=== PATIENT | female | born 1945 | race Caucasian/White ===

== ENCOUNTER → 2016-12-14 | Outpatient (CLI) | payer BC ==
[~2016-12-14] MED LIST: ACET-1256 PO; CLB200 PO; DIPH-437 PO; ESCI1TAB10 PO; GABA-774 PO; LORA10TA44 PO; PANT40TA PO; RQP/5 PO; SIMV10TA2 PO; SYN137 PO
[2016-12-14 12:54] LABS: BASO % 0.3 %; BASO ABS # 0.02 K/uL (0-0.2); COMPLETE YES; EOS % 3.5 %; HEMATOCRIT 41.4 % (37-47); IG% 0.8 %; MEAN CELL VOLUME 94.3 fL (80-100); MEAN CORPUSCULAR HEMOGLOBIN 30.8 pg (25-34); MEAN CORPUSCULAR HGB CONC 32.6 g/dl (32-36); MEAN PLATELET VOLUME 10.2 fL (7.4-10.4); MONO % 11.8 %; NEUT % 40.6 %; PLATELET COUNT 271 K/uL (130-400); RED BLOOD COUNT 4.39 M/uL (4.2-5.4); WHITE BLOOD COUNT 6.04 K/uL (4.8-10.8)
[2016-12-14 13:31] LABS: ALT/SGPT 43 U/L (12-78); AST/SGOT 40 U/L (15-37); BLOOD UREA NITROGEN 16 mg/dl (7-18); BUN/CREATININE RATIO 17.7 (10-20); CALCIUM 8.7 mg/dl (8.5-10.1); CARBON DIOXIDE 24 mmol/L (21-32); CHLORIDE 108 mmol/L (98-107); CHOLESTEROL 228 mg/dl (0-200); CREATININE 0.89 mg/dl (0.60-1.20); GLUCOSE 96 mg/dl (70-99); POTASSIUM 4.1 mmol/L (3.5-5.1); SODIUM 141 mmol/L (136-145)
[2016-12-14 13:42] LABS: ALB/GLOB RATIO 1.2 (0.9-2); ALKALINE PHOSPHATASE 75 U/L (45-117); CHOLESTEROL/HDL RATIO 4.2; HDL CHOLESTEROL 54 mg/dl; LDL CHOLESTEROL CALCULATED 143 mg/dl; TRIGLYCERIDES 155 mg/dl (0-150); VERY LOW DENSITY LIPOPROT CALC 31 mg/dl
--- NOTE | 2016-12-22 05:45 | CODING QUERY MEDICAL NECESSITY ---
CQSUPPORTING DIAGNOSIS NEEDED A supporting diagnosis is required for the test/procedure performed on this patient in order for us to be reimbursed by the patient's insurance. Please provide a supporting diagnosis for the following test/procedure listed below next to the test name along with your signature. *If there is no additional diagnosis for this patient that would support the following test/procedure please document that below next to the test/procedure. Test(s)/Procedure(s) that require a supporting diagnosis: DOS 12/14/16 BLOOD COUNTS Provider Signature: Date: Thank you Jaymie Donald Directr Information Management Once completed, please kindly fax back to [phone] For questions please call [phone]
== END | disposition home or self-care (01) ==
LOC: C.LABPVFM 09:05
PROVIDERS: ATTEND Neuromusculoskeletal Medicine & OMM
DX: Z00.00 Encounter for general adult medical examination without abnormal findings (principal); R31.29 Other microscopic hematuria

== ENCOUNTER → 2017-07-23 | Outpatient (CLI) | payer BC ==
[~2017-07-23] MED LIST changes: -ACET-1256 PO; -DIPH-437 PO; -GABA-774 PO; -PANT40TA PO; -SIMV10TA2 PO
--- NOTE | 2017-07-23 14:24 | DIAGNOSTIC IMAGING REPORT ---
MRI OF THE LUMBAR SPINE WITHOUT IV CONTRAST CLINICAL HISTORY: Bilateral lower extremity radiculopathy. Chronic low back pain. COMPARISON STUDY: MRI of the lumbar spine dated 06/27/2014. TECHNIQUE: MRI of the lumbar spine is performed utilizing various T1 and T2-weighted images in the axial, sagittal, and coronal planes. IV contrast was not administered for this examination. FINDINGS: Lumbar spine: Vertebral body height is maintained throughout the lumbar spine. Minimal retrolisthesis is seen at L2-L3. Alignment is otherwise preserved. There is straightening of the lumbar lordosis. Lumbar dextrocurvature is centered at L3. Anterior and lateral marginal osteophytes are seen throughout. Marrow signal intensity is slightly heterogeneous. Chronic degenerative endplate changes seen at all levels. Mild endplate edema is seen at L3-L4. No destructive bony lesion is identified. A hemangioma is incidentally noted in the body of L1. The transverse and spinous processes appear intact. No evidence of spondylolysis is seen. Intervertebral discs: Degenerative disc desiccation is seen throughout the lumbar spine. Moderate loss of height is seen from L2 to L3 through L4-L5. Spinal cord: The visualized spinal cord is normal in morphology and signal intensity. The conus medullaris terminates at the level of L1. The nerve roots of the cauda equina are normal in morphology. These are tethered at L3-L4 and L4-L5. L1-L2: There is a small posterior disc bulge with annular fissure. No significant acquired compromise of the central canal is identified. Facet arthropathy causes minimal left-sided neural foraminal stenosis. L2-L3: A posterior disc bulge is seen eccentric to the left with annular fissure. There is no significant acquired compromise of the central canal at this level. There is bilateral subarticular stenosis, with probable impingement on the exiting bilateral L2 and the transiting bilateral L3 nerve roots. Facet arthropathy causes mild left-sided neural foraminal stenosis. L3-L4: There is broad-based posterior disc bulge with annular fissure. In conjunction with hypertrophy of the ligamentum flavum, there is mild to moderate central canal stenosis at this level with a minimum AP diameter of 9 mm. There is severe bilateral subarticular stenosis, left greater right. This likely impinges on the exiting left L3 nerve root. This also abuts the transiting bilateral nerve roots and the exiting right L3 nerve root. Mild facet arthropathy is of no consequence. The neural foramina appear clear. L4-L5: There is posterior disc bulge with annular fissure. In conjunction with hypertrophy of the ligamentum flavum, there is moderate central canal stenosis at this level with a minimum AP diameter of 7 mm. There is bilateral subarticular stenosis with possible impingement of exiting bilateral L4 as was the transiting bilateral L5 nerve roots. Facet arthropathy causes mild bilateral neural foraminal stenosis. L5-S1: There is minimal posterior disc bulge with annular fissure. No significant acquired compromise of the central canal is identified. There is mild]right greater than left subarticular stenosis. This may abut the exiting right L5 nerve root. Facet arthropathy causes mild right neural foraminal stenosis. Facet joint effusions are identified. Sacrum: The visualized sacrum is normal in morphology and signal intensity. Mild fatty marrow changes observed. Soft tissues: There is fatty atrophy of the paraspinous and iliopsoas musculature. The partially imaged retroperitoneal structures are grossly unremarkable but incompletely assessed. Diverticular disease is noted in the partially imaged sigmoid colon. IMPRESSION: 1. Moderate lumbosacral spondylosis and scoliosis as detailed above with multilevel acquired compromise of the central canal. See discussion for detailed level by level analysis. These findings are similar to the 06/27/2014 examination. 2. No destructive bony lesion is seen. Dictated: 07/23/2017 2:00 PM Transcribed: 07/23/2017 2:24 PM Ana Electronically signed by: Valente Vallecillo M.D. 07/23/2017 2:47 PM Dictated Date/Time: 07/23/2017 2:00 PM
== END | disposition home or self-care (01) ==
LOC: C.MRI 13:06
PROVIDERS: ATTEND Orthopaedic Surgery Orthopaedic Surgery of the Spine
DX: M48.061 Spinal stenosis, lumbar region without neurogenic claudication (principal); M47.816 Spondylosis without myelopathy or radiculopathy, lumbar region; M41.50 Other secondary scoliosis, site unspecified

== ENCOUNTER → 2017-08-12 | Outpatient (CLI) | payer BC ==
--- NOTE | 2017-08-12 14:37 | DIAGNOSTIC IMAGING REPORT ---
RIBS UNILATERAL WITH PA CHEST HISTORY: 72 years-old Female ACUTE SINUSITIS/ RIB PAIN ON LT acute left-sided rib pain with acute atypical chest pain COMPARISON: Chest radiographs 09/14/2015 TECHNIQUE: PA view of the chest with left ribs FINDINGS: Cardiomediastinal and hilar silhouettes are within normal limits. Moderate hemidiaphragmatic elevation is unchanged. There is no pneumothorax, pleural effusion, focal airspace consolidation or overt pulmonary edema. Mild biapical pleural-parenchymal scarring. Minimal sigmoidal scoliosis of the thoracolumbar spine. There is an acute fracture of the anterolateral left ninth rib with 3 mm lateral displacement. No additional acute displaced rib fracture identified. Multilevel degenerative changes of the spine. IMPRESSION: 1. No acute process of the chest. 2. Acute mildly displaced fracture of the anterolateral left ninth rib. No pneumothorax. The above report was generated using voice recognition software. It may contain grammatical, syntax or spelling errors. Electronically signed by: Lalit Hansen M.D. 08/12/2017 2:36 PM Dictated Date/Time: 08/12/2017 2:33 PM
== END | disposition home or self-care (01) ==
LOC: C.RADPV 14:10
PROVIDERS: ATTEND Nurse Practitioner
DX: J01.90 Acute sinusitis, unspecified (principal); R07.81 Pleurodynia; S22.32XA Fracture of one rib, left side, initial encounter for closed fracture; X58.XXXA Exposure to other specified factors, initial encounter

== ENCOUNTER → 2017-08-27 | Outpatient (CLI) | payer BC ==
[2017-08-27 12:59] LABS: BLOOD UREA NITROGEN 19 mg/dl (7-18); CALCIUM 9.2 mg/dl (8.5-10.1); CARBON DIOXIDE 28 mmol/L (21-32); CHOLESTEROL 310 mg/dl (0-200); CREATININE 0.83 mg/dl (0.60-1.20); GLUCOSE 107 mg/dl (70-99); POTASSIUM 4.5 mmol/L (3.5-5.1); SODIUM 138 mmol/L (136-145)
== END | disposition home or self-care (01) ==
LOC: C.LABPVFM 08:00
PROVIDERS: ATTEND Nurse Practitioner
DX: E78.5 Hyperlipidemia, unspecified (principal); E03.9 Hypothyroidism, unspecified; G25.81 Restless legs syndrome; M48.061 Spinal stenosis, lumbar region without neurogenic claudication

== ENCOUNTER → 2018-02-04 | Outpatient (CLI) | payer BC ==
[2018-02-04 13:03] LABS: BLOOD UREA NITROGEN 15 mg/dl (7-18); CALCIUM 9.1 mg/dl (8.5-10.1); CARBON DIOXIDE 24 mmol/L (21-32); CHOLESTEROL 185 mg/dl (0-200); CREATININE 0.83 mg/dl (0.60-1.20); GLUCOSE 110 mg/dl (70-99); POTASSIUM 4.1 mmol/L (3.5-5.1); SODIUM 141 mmol/L (136-145)
== END | disposition home or self-care (01) ==
LOC: C.LABPVFM 09:10
PROVIDERS: ATTEND Nurse Practitioner
DX: G25.81 Restless legs syndrome (principal); E03.9 Hypothyroidism, unspecified; E78.5 Hyperlipidemia, unspecified

== ENCOUNTER 2019-12-29 08:36 | Observation (INO) ==
--- NOTE | 2019-12-12 19:40 | PAT Medication Instructions ---
Medication Instructions Date of Service December 12, 2019 Home Medications Medication Instructions Recorded cetirizine 10 mg tablet 10 mg PO DAILY PRN #90 tab 11/11/18 simvastatin 20 mg tablet See Rx Instructions .ROUTE 03/28/19 .COMPLEX #90 tablet diclofenac sodium 1 % topical gel 4 gm TOP QID PRN #100 gm 04/28/19 levothyroxine 150 mcg tablet See Rx Instructions .ROUTE 04/28/19 .COMPLEX #30 tablet lorazepam 0.5 mg tablet 0.5 mg PO BID PRN #20 tab 05/01/19 celecoxib 200 mg capsule 200 mg PO BID #180 cap 05/29/19 triamcinolone acetonide 0.1 % 1 applic TOP BID #80 gm 07/26/19 topical ointment ropinirole 1 mg tablet See Rx Instructions PO BID #180 tab 08/03/19 pantoprazole 40 mg tablet,delayed 40 mg PO HS #90 tab 10/23/19 release pregabalin 100 mg capsule 100 mg PO BID #60 cap 11/30/19 tramadol 50 mg tablet 50 mg PO BID PRN #60 tab 11/30/19 duloxetine 30 mg capsule,delayed 30 mg PO DAILY #90 cap 12/11/19 release duloxetine 60 mg capsule,delayed 60 mg PO DAILY #90 cap 12/11/19 release ascorbic acid (vitamin C) 500 mg tablet 250 mg PO QAM cetirizine 10 mg tablet 10 mg PO DAILY PRN cholecalciferol (vitamin D3) 25 mcg (1,000 unit) tablet 2,000 units PO QAM multivit with min-folic acid 200 mcg chewable tablet 200 mcg PO QAM cyanocobalamin (vitamin B-12) [Vitamin B-12] 2,000 mcg PO QAM simvastatin 20 mg tablet See Rx Instructions .ROUTE .COMPLEX diclofenac sodium 1 % topical gel 4 gm TOP QID PRN levothyroxine 150 mcg tablet See Rx Instructions .ROUTE .COMPLEX lorazepam 0.5 mg tablet 0.5 mg PO BID PRN celecoxib 200 mg capsule 200 mg PO BID triamcinolone acetonide 0.1 % topical ointment 1 applic TOP BID ropinirole 1 mg tablet See Rx Instructions PO BID pantoprazole 40 mg tablet,delayed release 40 mg PO HS pregabalin 100 mg capsule 100 mg PO BID tramadol 50 mg tablet 50 mg PO BID PRN Cbd 1 dose SUBLINGUAL BID Cbd Gummy Chew 1 tab PO QPM duloxetine 30 mg capsule,delayed release 30 mg PO DAILY duloxetine 60 mg capsule,delayed release 60 mg PO DAILY ASK your surgeon for instructions celecoxib 200 mg capsule 200 mg PO BID STOP taking 24 hours before surgery diclofenac sodium 1 % topical gel 4 gm TOP QID PRN triamcinolone acetonide 0.1 % topical ointment 1 applic TOP BID ropinirole 1 mg tablet See Rx Instructions PO BID DO NOT take the morning of surgery ascorbic acid (vitamin C) 500 mg tablet 250 mg PO QAM cetirizine 10 mg tablet 10 mg PO DAILY PRN cholecalciferol (vitamin D3) 25 mcg (1,000 unit) tablet 2,000 units PO QAM multivit with min-folic acid 200 mcg chewable tablet 200 mcg PO QAM cyanocobalamin (vitamin B-12) [Vitamin B-12] 2,000 mcg PO QAM Cbd 1 dose SUBLINGUAL BID Take morning of surgery With a small sip of water, OTHERWISE NOTHING TO EAT OR DRINK AFTER MIDNIGHT: simvastatin 20 mg tablet See Rx Instructions .ROUTE .COMPLEX levothyroxine 150 mcg tablet See Rx Instructions .ROUTE .COMPLEX lorazepam 0.5 mg tablet 0.5 mg PO BID PRN (if needed) pregabalin 100 mg capsule 100 mg PO BID tramadol 50 mg tablet 50 mg PO BID PRN (okay to take up to 4 hours prior to surgery if needed) duloxetine 30 mg capsule,delayed release 30 mg PO DAILY duloxetine 60 mg capsule,delayed release 60 mg PO DAILY Take evening before surgery cetirizine 10 mg tablet 10 mg PO DAILY PRN (if needed) simvastatin 20 mg tablet See Rx Instructions .ROUTE .COMPLEX lorazepam 0.5 mg tablet 0.5 mg PO BID PRN (if needed) pantoprazole 40 mg tablet,delayed release 40 mg PO HS pregabalin 100 mg capsule 100 mg PO BID tramadol 50 mg tablet 50 mg PO BID PRN (if needed) Cbd 1 dose SUBLINGUAL BID Cbd Gummy Chew 1 tab PO QPM Other Notes If you have any questions please call us at [phone] or [phone] or [phone] or [phone]
--- NOTE | 2019-12-14 09:50 | Anesthesiology Consultation ---
Date of Service December 14, 2019 Assessment & Plan (1) Encounter for pre-operative examination: Per PAT assessment on 12/13: Travel screen negative. No known COVID-19 positive contacts. No current COVID-19 related symptoms. Patient scheduled for preop pr otocol COVID-19 testing at [facility]. Awaiting results. Chart Review Chart Review: Acceptable Risk for Surgery (pending COVID testing) and Patient seen in Pre Admission Testing Teaching & Discussion Pre-Anesthesia Teaching/Discussion Notes: Instructed NPO after midnight before surgery,except medications with 15 cc of water. Medication instructions provided according to the PAT guidelines. History Surgery Operation Date: 12/29/19 12:30 Proposed Procedures p Left Total Knee Arthroplasty - Jose Angel Greer MD Height/Weight Height: 5 ft 2 in Weight: 83.8 kg Allergies Allergy/AdvReac Type Severity Reaction Status Date / Time aspirin Allergy Unknown facial Verified 12/06/19 10:23 swelling chlorpheniramine Allergy Unknown facial Verified 12/06/19 10:23 swelling Gluten AdvReac Intermediate diarhea Uncoded 12/06/19 10:23 Medications Home Medications Medication Instructions Recorded Confirmed Last Taken ascorbic acid (vitamin C) 500 mg 250 mg PO QAM tab 11/11/18 12/06/19 01/11/19 tablet cetirizine 10 mg tablet 10 mg PO DAILY PRN #90 tab 11/11/18 12/06/19 Unknown cholecalciferol (vitamin D3) 25 2,000 units PO QAM tab 11/11/18 12/06/19 01/11/19 mcg (1,000 unit) tablet multivit with min-folic acid 200 200 mcg PO QAM tab 11/11/18 12/06/19 01/11/19 mcg chewable tablet cyanocobalamin (vitamin B-12) 2,000 mcg PO QAM 01/12/19 12/06/19 01/11/19 [Vitamin B-12] simvastatin 20 mg tablet See Rx Instructions .ROUTE 03/28/19 12/06/19 Unknown .COMPLEX #90 tablet diclofenac sodium 1 % topical gel 4 gm TOP QID PRN #100 gm 04/28/19 12/06/19 Unknown levothyroxine 150 mcg tablet See Rx Instructions .ROUTE 04/28/19 12/06/19 Unknown .COMPLEX #30 tablet lorazepam 0.5 mg tablet 0.5 mg PO BID PRN #20 tab 05/01/19 12/06/19 Unknown celecoxib 200 mg capsule 200 mg PO BID #180 cap 05/29/19 12/06/19 Unknown triamcinolone acetonide 0.1 % 1 applic TOP BID #80 gm 07/26/19 12/06/19 Unknown topical ointment ropinirole 1 mg tablet See Rx Instructions PO BID #180 tab 08/03/19 12/06/19 Unknown pantoprazole 40 mg tablet,delayed 40 mg PO HS #90 tab 10/23/19 12/06/19 Unknown release pregabalin 100 mg capsule 100 mg PO BID #60 cap 11/30/19 12/06/19 Unknown tramadol 50 mg tablet 50 mg PO BID PRN #60 tab 11/30/19 12/06/19 Unknown Cbd 1 dose SUBLINGUAL BID 12/06/19 12/06/19 Unknown Cbd Gummy Chew 1 tab PO QPM 12/06/19 12/06/19 Unknown duloxetine 30 mg capsule,delayed 30 mg PO DAILY #90 cap 12/11/19 Unknown release duloxetine 60 mg capsule,delayed 60 mg PO DAILY #90 cap 12/11/19 Unknown release Past Medical History Medical History Chronic back pain lower back Fibromyalgia GERD (gastroesophageal reflux disease) controlled Hyperlipidemia Hypothyroidism Restless leg syndrome Scoliosis Exercise / Class Metabolic Activity III < 4 Walking/Shop/Light housework Past Family History Family History Sister Breast cancer Father Myocardial infarction Family history of diabetes mellitus Denies family history of Ovarian cancer Prostate cancer Colorectal cancer Past Surgical History Surgical History History of cataract surgery R/L History of colonoscopy History of esophagogastroduodenoscopy (EGD) History of knee surgery RIGHT History of oophorectomy History of total knee replacement RIGHT Hx of eye surgery REPAIR "HOLE EYE" Hx of hysterectomy Past Anesthesia History No Hx of Anesthesia Complications and No Family Hx of Anesthesia Complications History of PONV No Hx of PONV and No Hx of Motion Sickness Social History Smoking Status: Never smoker Do You Dip or Chew Tobacco: No Hx Alcohol Use: Yes Alcohol type: beer, wine and hard liquor alcohol intake frequency: a few times a week Hx Substance Use: Yes substance use type: other Substance Use Type Other:: CBD OIL 2 X DAILY-CBD OIL SL AM AND SL/CHEWY PO PM Review of Systems Patient denies chest pain, shortness of breath, fever, chills, cough, wheezing, palpitations. Physical Exam Vital Signs VITALS BP 125/77 P 67 TEMP 98.0 SP02 97%RA RESP 16 PHYSICAL Full neck and c-spine range of motion. Full TMJ range of motion. TMD 2.5 finger breaths Mallampati Score 3 Dentition: missing tooth ("failed implant") left upper molar, several caps vs. crowns including upper front teeth Lungs: clear throughout to auscultation Cardiac: regular rate and rhythm, no murmurs noted Spine: normal Carotid arteries: negative bruit Extremities: left shoulder bruise after mechanical fall 11/2019 Testing Laboratory Results 12/14/19 10:20 PT 10.8 Seconds (9.0-12.0) 12/14/19 10:20 INR 1.0 (0.9-1.1) 12/14/19 10:20 APTT 27.7 Seconds (21.0-31.0) 12/14/19 10:20 Blood Type O Positive 12/14/19 10:20 Antibody Screen NEGATIVE 12/14/19 10:20 11/27/19 WBC 6.5 H/H 13.9/40.2 PLT 253 Electrocardiogram Date: 12/14/19 NSR at 67bpm. LAFB. Chest X-Ray Date: 12/14/19 Findings: + NAD
--- NOTE | 2019-12-14 10:28 | Electrocardiogram Report ---
Test Reason : Blood Pressure : / mmHG Vent. Rate : 067 BPM Atrial Rate : 067 BPM P-R Int : 146 ms QRS Dur : 084 ms QT Int : 440 ms P-R-T Axes : 073 -58 045 degrees QTc Int : 464 ms Normal sinus rhythm Left anterior fascicular block Abnormal ECG When compared with ECG of 14-SEP-2015 02:31, No significant change was found Confirmed by Brannon Mccarthy ([id number]) on 12/14/2019 10:27:47 AM Referred By: Jose Angel Greer Confirmed By:Brannon Mccarthy
--- NOTE | 2019-12-14 10:56 | XRay Report ---
XR chest 2V PA/lateral CLINICAL HISTORY: PREOP preoperative evaluation COMPARISON STUDY: 08/12/2017 FINDINGS: The bones soft tissues and hemidiaphragms are normal. The cardiomediastinal silhouette is n ormal. The lungs are clear. The pulmonary vasculature is normal. IMPRESSION: Negative chest. ACT 112: Negative or not required by law. The above report was generated using voice recognition software. It may contain grammatical, syntax or spelling errors. Electronically signed by: Haim Ramirez M.D. 12/14/2019 10:55 AM
[2019-12-14 12:56] LABS: Partial Thromboplastin Time 27.7 Seconds (21.0-31.0); Prothrombin Time 10.8 Seconds (9.0-12.0)
[2019-12-14 13:00] LABS: BUN Creatinine Ratio 21.2 (10-20); Blood Urea Nitrogen 20 mg/dl (7-18); C Reactive Protein < 0.29 mg/dl (0-0.29); Calcium 9.1 mg/dl (8.5-10.1); Carbon Dioxide 27 mmol/L (21-32); Chloride 107 mmol/L (98-107); Creatinine Clr Calc Pharmacy 55.5 ml/min; Est GFR (African American) 72.1; Est GFR (Non-African American) 62.2; Glucose 101 mg/dl (70-99); Potassium 4.6 mmol/L (3.5-5.1); Sodium 138 mmol/L (136-145)
[~2019-12-29 08:36] MED LIST changes: +ACETAMINOPHEN 500 MG TAB PO SCH; +BUPIVACAINE LIPOSOME/PF 266 MG, BUPIVACAINE/EPINEPHRINE 50 ML, SODIUM CHLORIDE 0.9% 30 ... INFIL SCH; +CEFAZOLIN 2000MG 2,000 MG/15 ML SYR IV SCH; -CLB200 PO; -ESCI1TAB10 PO; +FAMOTIDINE 20 MG TAB PO SCH; +GABAPENTIN 300 MG CAP PO SCH; -LORA10TA44 PO; +LR 500ML BOLUS, THEN 15ML/HR IV SCH; +LR 60ML/HR IV SCH; +METOCLOPRAMIDE HCL 10 MG TABLET PO SCH; -RQP/5 PO; -SYN137 PO; +TRANEXAMIC ACID 1,000 MG **IV Intra-op IV SCH
--- NOTE | 2019-12-29 08:43 | History & Physical Bridge Note ---
Date of Service December 29, 2019 History & Physical Bridge Note I have examined the patient, reviewed the History & Physical and in the interval since the performance of the History & Physical I have noted the following changes of clinical significance: no changes noted
[2019-12-29] MEDS ORDERED: ROPIVACAINE 0.5% 5 MG/ML 30 ML VIAL ONE (08:50)
[2019-12-29] MEDS ORDERED: BUPIVACAINE 0.5 % 5 MG/1 ML PF 10ML VIAL ONE (08:50)
[2019-12-29] MEDS ORDERED: ATROPINE SULFATE 0.1 MG/ML 10ML SYR IV PRN (09:02)
[2019-12-29] MEDS ORDERED: ONDANSETRON INJ 2 MG/ML 2 ML VIAL IV PRN ×2 (09:02→13:56)
[2019-12-29] MEDS ORDERED: ePHEDrine sulfate 50 MG/ML AMP IV PRN (09:02)
[2019-12-29] MEDS ORDERED: fentaNYL citrate 100 MCG/2 ML VIAL IV PRN (09:02)
[2019-12-29] MEDS ORDERED: MIDAZOLAM HCL 1 MG/ML 2ML VIAL ONE (09:22)
[2019-12-29] MEDS ORDERED: LIDOCAINE HCL 2% 2 ML VIAL/AMP(20MG/ML) INFIL ONE (09:22)
[2019-12-29] MEDS ORDERED: PROPOFOL IV EMULSION 10 MG/ML 20 ML VIAL IV ONE (09:22)
[2019-12-29] MEDS ORDERED: GABAPENTIN 300 MG CAP ONE (10:13)
[2019-12-29] MEDS ORDERED: FAMOTIDINE 20 MG TAB ONE (10:13)
[2019-12-29] MEDS ORDERED: ACETAMINOPHEN 500 MG TAB ONE (10:13)
[2019-12-29] MEDS ORDERED: METOCLOPRAMIDE HCL 10 MG TABLET ONE (10:13)
[2019-12-29] MEDS ORDERED: TRANEXAMIC ACID / 0.7% NACL 1000MG/100ML BAG IV ONE (10:14)
[2019-12-29] MEDS ORDERED: CEFAZOLIN 2,000 MG/15 ML IV PUSH IV ONE (10:15)
[2019-12-29] MEDS ORDERED: BUPIVACAINE/EPINEPHRINE 0.25% 1:200,000 30 ML VIAL ONE (10:38)
[2019-12-29] MEDS ORDERED: SODIUM CHLORIDE 0.9% PF 50 ML VIAL ONE (10:39)
[2019-12-29] MEDS ORDERED: BACITRACIN INJ 50,000 UNIT VIAL ONE (10:39)
[2019-12-29] MEDS ORDERED: BUPIVACAINE LIPOSOME 1.3% 266 MG/20 ML VIAL ONE (10:39)
--- NOTE | 2019-12-29 12:27 | Post Operative Brief Note ---
PG Immediate Post Op with CF Date of Surgery December 29, 2019 Pre & Post Diagnosis Operation Date: 12/29/19 10:40 Pre-Op Diagnosis: LEFT KNEE DEGENERATIVE JOINT DISEASE Post-Op Diagnosis: LEFT KNEE DEGENERATIVE JOINT DISEASE I identified the patient and participated in the time-out.: Yes Procedure Operation Date: 12/29/19 10:40 Actual Procedures p Left Total Knee Replacement(Left) - Jose Angel Greer MD Surgeon Jose Angel Greer MD Shear Operator Automatic Alex, PAC Estimated Blood Loss 50 Findings Consistent with Post-Op Diagnosis Fluids 1100 cc Specimens Specimen Description: Permanent Solution: A.) Left Knee Bone and Tissue Drains Hester Catheter (16 yi 10ml balloon) Anesthesia Type Spinal MAC Complications none Disposition Accompanied Patient To Recovery: No Disposition: Recovery Room
--- NOTE | 2019-12-29 12:58 | XRay Report ---
XR knee LT 1 or 2V routine CLINICAL HISTORY: Surgical Post Op COMPARISON: None. DISCUSSION: There are postsurgical changes of a total left knee arthroplasty and patellar resurfacing . The femoral and tibial components appear well seated. Overlying skin carolyn are visualized. There is gas within the soft tissues consistent with recent surgery IMPRESSION: Postsurgical changes of a total left knee arthroplasty. ACT 112: Negative or not required by law. Electronically signed by: Rashard Power M.D. 12/29/2019 12:57 PM
[2019-12-29] MEDS ORDERED: METOCLOPRAMIDE HCL INJ 5 MG/ML 2 ML VIAL IV PRN (13:56)
[2019-12-29] MEDS ORDERED: ALUMINUM/MAGNESIUM SUSP 30 ML UDC PO PRN (13:56)
[2019-12-29] MEDS ORDERED: bisacodyL 10 MG SUPP PR PRN (13:56)
[2019-12-29] MEDS ORDERED: MAGNESIUM HYDROXIDE SUSP 30 ML UDC PO PRN (13:56)
[2019-12-29] MEDS ORDERED: LORazepam 0.5 MG TAB PO PRN (13:56)
[2019-12-29] MEDS ORDERED: CETIRIZINE HCL 10 MG TABLET PO PRN (13:56)
[2019-12-29] MEDS ORDERED: NALOXONE HCL 0.4 MG/1 ML VIAL/CARP IV PRN (13:56)
[2019-12-29] MEDS: TRAMADOL HCL 50 MG TABLET PO PRN ×2 (15:04→22:06)
--- NOTE | 2019-12-29 15:37 | Anesthesiology Progress Note ---
Date of Service December 29, 2019 Anesthesia Post Procedure Vital Signs Vital Signs: Temp Pulse Resp BP BP Pulse Ox 12/29/19 14:59 36.6 C 70 16 147/89 H 98 12/29/19 14:26 66 18 137/68 96 12/29/19 13:47 36.4 C L 72 18 145/77 H 97 12/29/19 13:30 36.3 C L 74 18 139/67 97 12/29/19 13:20 72 16 144/68 H 99 12/29/19 13:10 68 12 147/65 H 99 12/29/19 13:00 69 16 133/66 98 12/29/19 12:50 71 18 130/59 L 100 12/29/19 12:40 70 17 132/62 100 12/29/19 12:32 36.4 C L 71 16 124/53 L 97 12/29/19 08:50 36.5 C 68 16 145/78 H 96 Pain Intensity Left Knee: Pain Intensity: 4 Transfer of Care Handoff Completed per policy Notes Mental Status: alert / awake / arousable and participated in evaluation Patient Amnestic to Procedure: Yes Nausea / Vomiting: adequately controlled Pain: adequately controlled Airway Patency, RR, SpO2: stable & adequate BP & HR: stable & adequate Hydration State: stable & adequate Neuraxial Anesthesia: was administered and sensory block is resolving Anesthetic Complications: no major complications apparent and Pt Satisfied with anesthetic care
[2019-12-29] MEDS: KETOROLAC TROMETHAMINE 15 MG/ML VIAL IV SCH ×2 (15:45→22:18)
[2019-12-29] MEDS: SODIUM CHLORIDE 0.9% 1000ML 1,000 ML IV SCH ×2 (15:48→23:55)
[2019-12-29] MEDS: ROPINIROLE HCL 1 MG TABLET PO SCH ×2 (15:48→22:17)
[2019-12-29] MEDS: HYDROmorphone INJ 0.5 MG/0.5 ML SYR IV PRN ×2 (16:34→23:43)
[2019-12-29] MEDS: CEFAZOLIN 2000MG 2,000 MG/15 ML SYR IV SCH (18:06)
[2019-12-29] MEDS: FERROUS GLUCONATE 324 MG TAB PO SCH (18:07)
[2019-12-29] MEDS ORDERED: TRANEXAMIC ACID / 0.7% NACL 1,000 MG/100 ML BAG IV SCH (18:33)
--- NOTE | 2019-12-29 18:40 | Operative Report ---
Post Operative Report Pre & Post Diagnosis Operation Date: 12/29/19 10:40 Pre-Op Diagnosis: LEFT KNEE DEGENERATIVE JOINT DISEASE Post-Op Diagnosis: LEFT KNEE DEGENERATIVE JOINT DISEASE I identified the patient and participated in the time-out.: Yes Procedure Operation Date: 12/29/19 10:40 Actual Procedures p Left Total Knee Replacement(Left) - Jose Angel Greer MD Surgeon Jose Angel Greer MD Shoe Stitcher Alex, PAC Estimated Blood Loss 50 Findings Consistent with Post-Op Diagnosis Operative findings revealed advanced left knee tricompartment DJD. She had extensive grade 4 [id number] disease the medial compartment. She had less severe grade 4 disease in the lateral and patellofemoral compartments. She had a moderate-sized joint effusion. Fluids 1100 cc. Specimens Left knee sent for pathology. Drains None. Anesthesia Type Spinal MAC Complications none Disposition Accompanied Patient To Recovery: No Disposition: Recovery Room Indications Patient is a 74-year-old female is had a long history of bilateral knee pain discomfort. She is been through extensive conservative treatment in the past. She had her right knee replaced 4 years ago. During her left knee continue to bother him progressed. It was unresponsive conservative care. She has difficulty mobilizing and she elected proceed with total knee arthroplasty. Description of Procedure Operative implants consist of: 1. Biomet Vanguard size 65 left posterior by femoral component. 2. Biomet Vanguard size 67 tibial tray. 3. 12 mm posterior stabilized polyethylene insert. 4. 28 x 8 all poly-patella. Patient was taken to the operating room identified and placed on the operating table supine position protectors were properly padded. IV antibiotics arrived by anesthesia team. Spinal anesthetic and abductor canal block had been provided in the holding area. Hester cath was placed in sterile fashion for the left thigh turn was then placed in the left lower extremities and prepped and draped in usual sterile fashion. The left leg was elevated exsanguinated with use of an Esmarch interspace at 300 mmHg. An anterior posterior left knee was then performed the longitudinal incision centered over the patella. Sharp lysis got through subcutaneous tissue down below the extensor mechanism. A medial parapatellar arthrotomy incision was made. Some subperiosteal dissection was carried out medially. The fat pad was resected from each patella tendon. Lateral patellofemoral ligament was released. Patella was subluxated laterally. The the knee was flexed. The osteophytes were taken off the distal femur. The ACL and PCL were then released and distal femur the tibia subluxate anteriorly. The external tibial alignment jig was then placed in the interface the tibia and adjusted 14 mm medially. Proximal tibial cut was made to move about a millimeter or 2 of bone from most efficient aspect of the medial till plateau. Some osteophytes were taken off medial and posterior medially. The tibia sized to a size 67. Attention drawn the femur. The distal femur then with a sharp drop with intramedullary canal was suction. A left 5 degree valgus cutting guide was placed. Distal femoral cutting block was pinned in place. Distal femoral cut was made to take an additional 3 mm bone off distal femur. The femur was then sized to a size 65. We did downsize as an entire size due to the very narrow medial and lateral dimensions of her femur. The AP cutting block was pinned parallel to the epicondylar axis which was 6 degrees of external rotation. Anterior cut, anterior chamfer, posterior cut, posterior chamfer cuts were made. Box cutting guide was placed in just slight lateral box cut was made. The knee was flexed. The remnants of the medial and lateral menisci were excised. The osteophytes were taken off the posterior aspect the femur. A trial femoral component was placed for the tibial tray was pinned in maximum external rotation the drill and stem punch were used to create defect in proximal tip for the tibial tray. The knee was then trialed and the 12 mm insert fit most appropriately. Attention drawn the patella. The patella was cleaned of all soft tissue. Patella thickness measured 20 mm in thickness was cut down to 13. Was sized to a size 28 patella. The locals were drilled for the 28 patella. The lateral osteophyte was removed. Patella button was placed. Knee was taken through range of motion patella tracked nicely with no thumbs test. Attention drawn to placing the permanent components. All trial components removed. A bone plug was placed in the distal femur limit blood loss. A double batch Palacos G cement was mixed. A Biomet Vanguard size 65 left posterior by femoral component, size 67 tibial tray, a 12 mm posterior box polyethylene insert, and a 28 x 8 all poly-patella were then cemented in place. Knee was brought out into full extension total cement hardened. Final cement check was then performed. The pericapsular tissues were injected with total 1 cc of combination of 20 of Exparel, 30 cc normal saline, 50 cc of quarter percent Marcaine with epinephrine. Patient did receive 1 g tranexamic acid per the tourniquet was then let down for turn time of 54 minutes. Hemosta sis assured use electrocautery. The wounds once again irrigated. Extensor Maxon then closed with combination 1 PDS suture #1 Vicryl suture in [id number] fashion. The extensor mechanism was checked found to be intact the subcutaneous tissue then closed with 2 Dexon suture in buried interrupted fashion skin was closed skin carolyn. Leg was then cleaned dried and sterile dressing composed Xeroform, 4 x 4's, sterile cast padding, Navdeep bandage were applied. Patient transferred to the recovery room in stable condition. Patient tolerated procedure well and there were no complications. I attest to the content of the Intraoperative Record and any orders documented therein. Any exceptions are noted below.
[2019-12-29] MEDS ORDERED: CBD SL SCH (21:00)
[2019-12-29] MEDS ORDERED: CBD GUMMY PO SCH (21:00)
[2019-12-29] MEDS: TRIAMCINOLONE ACET 0.1% OINT 15 GM TUBE TOP SCH (22:15)
[2019-12-29] MEDS: SENNA 8.6 MG TAB PO SCH (22:15)
[2019-12-29] MEDS: DOCUSATE SODIUM 100 MG CAP PO SCH (22:15)
[2019-12-29] MEDS: ASPIRIN 81 MG ECTAB PO SCH (22:16)
[2019-12-29] MEDS: PANTOprazole 40 MG TAB PO SCH (22:18)
[2019-12-29] MEDS: PREGABALIN 100 MG CAP PO SCH (22:21)
[2019-12-30 00:55] LABS: Appearance Urine Clear (Clear); Bilirubin Urine Negative (Negative); Blood Urine Negative (Negative); Color Urine Yellow; Glucose Urine UA Negative (Negative); Ketones Urine Negative (Negative); Leukocyte Esterase Urine Negative (Negative); Nitrite Urine Negative (Negative); Protein Urine Negative (Negative); Specific Gravity Urine 1.014 (1.000-1.030); Urobilinogen Urine Negative (Negative)
[2019-12-30] MEDS: CEFAZOLIN 2000MG 2,000 MG/15 ML SYR IV SCH (02:51)
[2019-12-30] MEDS: KETOROLAC TROMETHAMINE 15 MG/ML VIAL IV SCH ×4 (04:47→22:11)
[2019-12-30 06:47] LABS: Hemoglobin 11.5 g/dL (12.0-16.0); Mean Corpuscular Hemoglobin 29.6 pg (25-34); Mean Corpuscular Hgb Conc 32.9 g/dL (32-36); Platelet Count 220 K/uL (130-400); RDW Coefficient of Variation 13.5 % (11.5-14.5); RDW Standard Deviation 44.1 fL (36.4-46.3); Red Blood Count 3.89 M/uL (4.2-5.4); White Blood Count 7.37 K/uL (4.8-10.8)
[2019-12-30 07:26] LABS: BUN Creatinine Ratio 17.7 (10-20); Calcium 7.7 mg/dl (8.5-10.1); Creatinine Clr Calc Pharmacy 62.6 ml/min; Est GFR (African American) 84.1; Est GFR (Non-African American) 72.6; Potassium 4.2 mmol/L (3.5-5.1)
[2019-12-30] MEDS: DULOXETINE HCL 30 MG CAP PO SCH (08:43)
[2019-12-30] MEDS: CHOLECALCIFEROL 1,000 UNITS 25 MCG TAB PO SCH (08:43)
[2019-12-30] MEDS: MULTIVITAMIN TAB PO SCH (08:43)
[2019-12-30] MEDS: CYANOCOBALAMIN 500 MCG TABLET (VITAMIN B-12) PO SCH (08:44)
[2019-12-30] MEDS: ASCORBIC ACID 500 MG TAB PO SCH (08:44)
[2019-12-30] MEDS: FERROUS GLUCONATE 324 MG TAB PO SCH ×2 (08:44→16:57)
[2019-12-30] MEDS: TRIAMCINOLONE ACET 0.1% OINT 15 GM TUBE TOP SCH ×2 (08:45→22:11)
[2019-12-30] MEDS: DOCUSATE SODIUM 100 MG CAP PO SCH ×2 (08:45→21:20)
[2019-12-30] MEDS ORDERED: MULTIVIT WITH MIN FOLIC ACID PO SCH (09:00)
[2019-12-30] MEDS ORDERED: [UNRECOGNIZED DRUG - OTHER] PO SCH (09:00)
[2019-12-30] MEDS: PREGABALIN 100 MG CAP PO SCH ×2 (09:01→21:20)
[2019-12-30] MEDS: HYDROmorphone INJ 0.5 MG/0.5 ML SYR IV PRN ×2 (09:02→13:48)
[2019-12-30] MEDS: ASPIRIN 81 MG ECTAB PO SCH ×2 (09:08→21:20)
--- NOTE | 2019-12-30 09:17 | Progress Notes ---
DATE: 12/30/2019 SUBJECTIVE: A 74-year-old white female postop day 1 from a left knee replacement. She is doing pretty well. Having some pain, but looks pretty comfortable. No chest pain or shortness of breath. Not feeling dizzy or lightheaded. She was having some urinary tract symptoms, so a UA was obtained. OBJECTIVE: VITAL SIGNS: Temperature 37.1. Vital signs stable. GENERAL: Physical examination shows a pleasant elderly female. She is sitting up in bed, looks quite comfortable. LUNGS: Clear to auscultation. HEART: Regular rate and rhythm. ABDOMEN: Soft, nontender, nondistended. EXTREMITIES: Grossly neurovascularly intact except as follows. Examination of the left leg reveals it to be well aligned. Dressing is clean, dry and intact. She can dorsiflex and plantarflex her foot appropriately. She is neurologically intact. LABORATORY DATA: Hemoglobin is 11.5. Hematocrit 35.0. Electrolytes are stable. Urinalysis is obtained and looks normal. ASSESSMENT: A 74-year-old white female postop day 1 from a left knee replacement. Her pain is controlled. She is neurologically intact. Urine looks clear. PLAN: 1. DVT prophylaxis include thigh-high TEDs, SCDs and aspirin twice a day. 2. PT/OT, weightbear as tolerated. Left total knee protocol. 3. Pain control, doing well with current pain regimen. 4. Disposition. She is planning to be discharged to home with some home health once adequately recovered and medically stable.
[2019-12-30] MEDS: TRAMADOL HCL 50 MG TABLET PO PRN ×2 (11:10→17:32)
[2019-12-30] MEDS: ROPINIROLE HCL 1 MG TABLET PO SCH ×2 (13:46→21:20)
[2019-12-30] MEDS: ACETAMINOPHEN 500 MG TAB PO SCH (16:10)
[2019-12-30] MEDS ORDERED: SIMVASTATIN 20 MG TAB PO SCH (21:00)
[2019-12-30] MEDS: SENNA 8.6 MG TAB PO SCH (21:20)
[2019-12-30] MEDS: PANTOprazole 40 MG TAB PO SCH (21:20)
[2019-12-31] MEDS: ACETAMINOPHEN 500 MG TAB PO SCH ×2 (00:31→07:44)
[2019-12-31] MEDS: KETOROLAC TROMETHAMINE 15 MG/ML VIAL IV SCH ×2 (04:27→10:19)
[2019-12-31] MEDS ORDERED: LEVOTHYROXINE SODIUM 150 MCG TABLET PO SCH (06:30)
[2019-12-31] MEDS: DULOXETINE HCL 30 MG CAP PO SCH (07:43)
[2019-12-31] MEDS: MULTIVITAMIN TAB PO SCH (07:43)
[2019-12-31] MEDS: ASPIRIN 81 MG ECTAB PO SCH (07:43)
[2019-12-31] MEDS: CHOLECALCIFEROL 1,000 UNITS 25 MCG TAB PO SCH (07:43)
[2019-12-31] MEDS: FERROUS GLUCONATE 324 MG TAB PO SCH (07:43)
[2019-12-31] MEDS: TRAMADOL HCL 50 MG TABLET PO PRN (07:43)
[2019-12-31] MEDS: ASCORBIC ACID 500 MG TAB PO SCH (07:44)
[2019-12-31] MEDS: DOCUSATE SODIUM 100 MG CAP PO SCH (07:44)
[2019-12-31] MEDS: TRIAMCINOLONE ACET 0.1% OINT 15 GM TUBE TOP SCH (07:44)
[2019-12-31] MEDS: CYANOCOBALAMIN 500 MCG TABLET (VITAMIN B-12) PO SCH (07:44)
[2019-12-31] MEDS: PREGABALIN 100 MG CAP PO SCH (07:47)
--- NOTE | 2019-12-31 09:11 | Progress Notes ---
DATE: 12/31/2019 SUBJECTIVE: A 74-year-old white female postop day 2 from a left knee replacement. She is doing pretty well. Pain is controlled. Therapy is going okay. No chest pain or shortness of breath. Not feeling dizzy or lightheaded. OBJECTIVE: VITAL SIGNS: Temperature 36.4. Vital signs stable. GENERAL: Physical examination shows a pleasant, middle-aged female. She is sitting up in bed, looks comfortable. EXTREMITIES: Examination of the left leg reveals the dressing to be in place. Just a little bit of bloody drainage anteriorly. She can dorsiflex and plantarflex her foot appropriately. She is neurologically intact. ASSESSMENT: A 74-year-old white female postop day 2 from left knee replacement, doing well. Pain is controlled. She is neurologically intact. She was concerned about urinary tract infection and we got a urinalysis which was negative. PLAN: 1. DVT prophylaxis include thigh-high TEDs, SCDs, and aspirin twice a day. 2. PT/OT, weightbear as tolerated. Left total knee protocol. 3. Pain control, doing well with current pain regimen. 4. Disposition: Plan to discharge to home with some home health later today.
--- NOTE | 2020-01-03 15:59 | Discharge Summary ---
Date of Service January 03, 2020 Admission HPI Per Admitting Provider Documented in the H & P Admission Exam (Per Admitting) Constitutional Documented in the H & P Discharge Data Consultations 12/29/19 13:56 Consult Case Management - Discharge Planning Routine Procedures Performed Operation Date: 12/29/19 10:40 Actual Procedures p Left Total Knee Replacement(Left) - Jose Angel Greer MD Hospital Course (1) Status post total left knee replacement: This patient is a 74 y/o female admitted on 12/29/19 and underwent left total knee replacement. She tolerated the procedure well and there were no complications. Transferred to the PACU post op and later to the orthopedic floor for further care. She was given ancef for antibiotic prophylaxis. She was also given MARKOS stockings, SCDs, and aspirin for DVT prophylaxis. Hemoglobin, hematocrit, and vital signs were monitored during their hospital stay and remained stable. Did not require any blood transfusions. There were no complications during her hospital stay. By post op day #2 the patient was tolerating a gluten free diet, pain was reasonably controlled with oral pain medicine, and she was participating in physical therapy. On post op day #2 the patient was discharged home and set up with home health care. She was given printed discharge instructions including prescriptions for extra strength tylenol, aspirin, and tramadol. Continue physical therapy, weight bearing as tolerated. Continue MARKOS stockings. Follow up approximately 2 weeks post op or sooner if there are problems or concerns. Coding Level of Care Code None Diagnoses Status post total left knee replacement Z96.652
== END 2019-12-31 11:16 | disposition home health service (06) ==
LOC: 3E 08:36 → ASU 08:36